=== PATIENT | male | born 1970 | race Caucasian/White ===

== ENCOUNTER 2018-12-12 16:47 | Emergency (ER) | payer OTHER ==
[~2018-12-12] VITALS: Ht 165.1 cm; Wt 69.8 kg
[2018-12-12 19:22] VITALS: BP 131/90
== END 2018-12-12 19:25 | disposition home or self-care (01) ==
LOC: ER 16:47 → EDBD 16:47 → ER 19:25
DX: J02.9 Acute pharyngitis, unspecified (principal)